=== PATIENT | female | born 1975 | race Caucasian/White ===

== ENCOUNTER → 2016-06-22 | Outpatient (CLI) | payer BC, MEDICARE ==
[~2016-06-22] MED LIST: COUMADIN 2.5MG2.5 MG PO; COUMADIN 5MG TAB5 MG PO; DIGOX125 MCG PO; LASIX20 MG PO; NEURONTIN300 MG PO; NITROSTAT0.4 MG SL; NORCO 10-325 T1 EACH PO; OMEPRAZOLE MAGN20 MG PO; VITAMIN D350000 UNIT PO; ZANAFLEX4 MG PO
== END ==
LOC: EMI 06-04 13:00
DX: M25.562 Pain in left knee (principal); M21.862 Other specified acquired deformities of left lower leg; M22.42 Chondromalacia patellae, left knee; M17.12 Unilateral primary osteoarthritis, left knee
CPT/HCPCS: 73721

== ENCOUNTER → 2016-07-01 | Outpatient (CLI) | payer BC, MEDICARE | LOC: HEART 5 06-10 10:00 | DX: I48.0 Paroxysmal atrial fibrillation (principal); R00.2 Palpitations; I05.0 Rheumatic mitral stenosis; I27.2 Other secondary pulmonary hypertension | CPT/HCPCS: 93306 ==

== ENCOUNTER → 2016-07-20 | Outpatient (CLI) | payer BC, MEDICARE ==
[2016-07-20 15:37] LABS: HEMOGLOBIN 12.1 gm/dl (12.3-15.3); RED BLOOD COUNT 4.5 M/UL (4.00-5.10); WHITE BLOOD COUNT 7.8 K/UL (4.5-11.0)
[2016-07-20 15:54] LABS: BUN/CREATININE RATIO 14 (0-10)
== END ==
LOC: LAB 15:10
PROVIDERS: Internal Medicine Cardiovascular Disease
DX: I50.32 Chronic diastolic (congestive) heart failure (principal); I05.0 Rheumatic mitral stenosis; I34.0 Nonrheumatic mitral (valve) insufficiency; R07.9 Chest pain, unspecified; R55 Syncope and collapse; I48.0 Paroxysmal atrial fibrillation
CPT/HCPCS: 36415; 71020; 80048; 85025; 85610

== ENCOUNTER → 2016-07-22 | Outpatient (CLI) | payer BC, MEDICARE | LOC: CATH 07:07 | DX: I50.33 Acute on chronic diastolic (congestive) heart failure (principal); I05.0 Rheumatic mitral stenosis; R60.9 Edema, unspecified; I34.0 Nonrheumatic mitral (valve) insufficiency; R00.2 Palpitations; I48.0 Paroxysmal atrial fibrillation; I27.2 Other secondary pulmonary hypertension; R06.02 Shortness of breath; F17.200 Nicotine dependence, unspecified, uncomplicated; J44.9 Chronic obstructive pulmonary disease, unspecified; M51.26 Other intervertebral disc displacement, lumbar region; M99.81 Other biomechanical lesions of cervical region; M99.83 Other biomechanical lesions of lumbar region; I95.1 Orthostatic hypotension; E55.9 Vitamin D deficiency, unspecified; Z88.1 Allergy status to other antibiotic agents; Z79.01 Long term (current) use of anticoagulants; Z79.891 Long term (current) use of opiate analgesic; Z79.899 Other long term (current) drug therapy; Z98.84 Bariatric surgery status; Z98.890 Other specified postprocedural states | CPT/HCPCS: 36415; 84703; C1751; C1769; J1644; J2250; J2270; J3010; J7030; Q0163; Q9963 ==

== ENCOUNTER → 2020-04-22 | Outpatient (CLI) | payer BC, MEDICARE ==
[~2020-04-22] MED LIST changes: +IBUPROFEN800 MG PO
== END ==
LOC: SLEEP 15:03
DX: G47.33 Obstructive sleep apnea (adult) (pediatric) (principal)
CPT/HCPCS: 95810

== ENCOUNTER → 2020-10-03 | Outpatient (CLI) | payer BC, MEDICARE ==
[2020-10-03 17:05] LABS: HEMOGLOBIN 9.2 gm/dl (12.3-15.3); RED BLOOD COUNT 4.66 M/UL (4.00-5.10); WHITE BLOOD COUNT 9.3 K/UL (4.5-11.0)
== END ==
LOC: LAB 15:52
PROVIDERS: Nurse Practitioner Family
DX: D64.9 Anemia, unspecified (principal)
CPT/HCPCS: 36415; 85027